=== PATIENT | male | born 1965 | race Hispanic/Latino ===

== ENCOUNTER 2019-12-14 12:28 | Inpatient (IN) | payer OTHER ==
[~2019-12-14] VITALS: Ht 167.6 cm; Wt 76.3 kg
[2019-12-14 13:40] LABS: BASOPHILS % 0.3 % (0.0-1.0); EOSINOPHILS % 0.1 % (0.0-6.0); HEMATOCRIT 47.9 % (38.2-49.6); HEMOGLOBIN 16.1 g/dL (14.0-18.0); LYMPHOCYTES # (AUTO) 1.7 (1.0-3.2); MEAN CORPUSCULAR HEMOGLOBIN 28.8 pg (28-32); MEAN CORPUSCULAR HGB CONC 33.6 g/dL (31-35); MEAN CORPUSCULAR VOLUME 85.5 fL (81-99); MONOCYTES # (AUTO) 0.6 (0.2-0.8); MONOCYTES % 6.1 % (4.4-11.3); NEUTROPHILS # (AUTO) 7.3 (2.1-6.9); NEUTROPHILS % 75.1 % (38.7-80.0); PLATELET COUNT 300 x10e3/uL (140-360); RED CELL DISTRIBUTION WIDTH 13.3 % (11.7-14.4)
[2019-12-14 13:50] LABS: INR 0.92; PROTHROMBIN TIME 12.8 seconds (11.9-14.5)
[2019-12-14 13:51] LABS: PARTIAL THROMBOPLASTIN TIME 36.9 seconds (23.8-35.5)
[2019-12-14 14:00] LABS: ALANINE AMINOTRANSFERASE 45 IU/L (0-55); ALBUMIN 4.5 g/dL (3.5-5.0); ALBUMIN/GLOBULIN RATIO 1.1 (0.8-2.0); ALKALINE PHOSPHATASE 50 IU/L (40-150); ANION GAP 14.9 mmol/L (8-16); BLOOD UREA NITROGEN 22 mg/dL (7-26); BUN/CREATININE RATIO 22 (6-25); CALCIUM 9.6 mg/dL (8.4-10.2); CARBON DIOXIDE 25 mmol/L (22-29); CHLORIDE 100 mmol/L (98-107); CREATININE, SERUM 1.01 mg/dL (0.72-1.25); EST GLOMERULAR FILTRATION RATE > 60 ML/MIN (60-); GLUCOSE 104 mg/dL (74-118); POTASSIUM 3.9 mmol/L (3.5-5.1); SODIUM 136 mmol/L (136-145)
[2019-12-14] MEDS ORDERED: KETOROLAC TROMETHAMINE 30 MG/ML VIAL IV STA (14:21)
[2019-12-14] MEDS ORDERED: ONDANSETRON HCL INJ 2MG/ML 2ML 2 MG/ML VIAL IV STA (14:21)
[2019-12-14] MEDS ORDERED: MORPHINE SULFATE 2 MG/ML SYR 1ML IV STA (14:21)
[2019-12-14] MEDS ORDERED: DIAZEPAM 5 MG TAB PO STA (14:21)
--- NOTE | 2019-12-14 16:59 | Diagnostic Imaging Report ---
History: Bilateral leg pain Comparison studies: None Technique: Sagittal, coronal and axial T2 , sagittal T1 and IR, axial spin density oblique. Intravenous contrast: None Findings: Number of lumbar vertebral bodies:5 Alignment: Normal lordosis.No scoliosis. Soft tissues: No T2 hyperintense inflammatory changes. Paraspinal muscles: No signal abnormalities. No atrophy. Lower thoracic cord:Normal in signal and morphology. The tip of the conus is at T12-L1. Cauda equina: No masses. No arachnoiditis. Vertebrae: Normal in height and signal intensity. No compression fractures, infection or neoplasm. Degenerative changes: L1-L2: No abnormalities. L2-L3: No abnormalities. L3-L4: The disc normal in height but decreased in T2 signal and associated with a posterior central annular fissure. Patent spinal canal and foramina. No disc herniations. L4-L5: Mildly degenerated disc. 1 cm central, right central and subarticular disc extrusion, which compresses the right L5 nerve root at the level of the disc and at the right lateral recess of L5, also results in severe spinal canal stenosis. No significant foraminal stenosis. L5-S1: Moderate degenerative disc. Moderate bilateral foraminal stenosis, right greater than left due to asymmetric disc bulge and right facet arthrosis. Patent spinal canal Partially visualized sacrum: No signal abnormalities. IMPRESSION: 1. Mildly degenerated disc at L4-5, moderate at L5-S1. 2. A 1 cm central, right central and subarticular disc extrusion at L4-5 compresses the right L5 nerve root and results in severe spinal canal stenosis. 3. Superimposed moderate foraminal stenosis L5-S1 (right greater than left). 4. Otherwise, no significant abnormalities. Signed by: Dr. Bruce Joseph M.D. on 12/14/2019 4:56 PM
[2019-12-14] MEDS ORDERED: DEXAMETHASONE SOD PHOS INJ 4 MG/ML VIAL IV ONE (17:30)
--- NOTE | 2019-12-14 18:17 | Emergency Department Note ---
History of Present Illnes History of Present Illness Chief Complaint: Back Pain History of Present Illness This is a 54 year old male sent here by pcp for mri of back r/o sciatica seen this morning c/o left lower back pain radiating down left leg to foot/toes states he's had pain for a week and c/o increasing weakness in legs and tingling Historian: Patient Arrival Mode: Car Returns Processor Required: No Onset (how long ago): week(s) (1) Location: lower back Quality: pain Radiation: Reports extremity (LLE) Severity: severe Onset quality: gradual Timing of current episode: constant Progression: worsening Chronicity: new Context: Denies recent illness Relieving factors: none Exacerbating factors: none Associated symptoms: Reports denies other symptoms Past Medical/Family History Physician Review I have reviewed the patient's past medical and family history. Any updates have been documented here. Past Medical History Recent Fever: No Clinical Suspicion of Infectio: No New/Unexplained Change in Ment: No Past Medical History: None Past Surgical History: None Social History Smoking Cessation: Never Smoker Counseling Performed: No Alcohol Use: Occasional Any Illegal Drug Use: No Physically hurt or threatened: No Other Any Pre-Existing Lines (PICC,: No Review of Systems Review of Systems Constitutional: Reports no symptoms EENTM: Reports no symptoms Cardiovascular: Reports no symptoms Respiratory: Reports no symptoms Gastrointestinal: Reports no symptoms Genitourinary: Reports no symptoms Musculoskeletal: Reports as per HPI Integumentary: Reports no symptoms Neurological: Reports no symptoms Psychological: Reports no symptoms Endocrine: Reports no symptoms Hematological/Lymphatic: Reports no symptoms Physical Exam Related Data Allergies: Coded Allergies: No Known Allergies (Unverified , 12/14/19) Triage Vital Signs Vital Signs Date Time Temp Pulse Resp B/P (MAP) Pulse Ox O2 Delivery O2 Flow Rate FiO2 12/14/19 12:53 98.9 77 16 134/90 99 Room Air Vital signs reviewed: Yes Physical Exam CONSTITUTIONAL Constitutional: Present well-developed, Present well-nourished HENT HENT: Present normocephalic, Present atraumatic, Present oropharynx clear/moist, Present nose normal HENT L/R: Present left ext ear normal, Present right ext ear normal EYES Eyes: Reports PERRL, Reports conjunctivae normal NECK Neck: Present ROM normal PULMONARY Pulmonary: Present effort normal, Present breath sounds normal CARDIOVASCULAR Cardiovascular: Present regular rhythm, Present heart sounds normal, Present capillary refill normal, Present normal rate GASTROINTESTINAL Abdominal: Present soft, Present nontender, Present bowel sounds normal GENITOURINARY Genitourinary: Present exam deferred SKIN Skin: Present warm, Present dry MUSCULOSKELETAL Musculoskeletal: Present ROM normal, Present other (POSITIVE SLR BILAT, NL DTR'S) NEUROLOGICAL Neurological: Present alert, Present oriented x 3, Present sensory deficit (SLIGHT DECR LIGHT TOUCH TO LEFT FOOT), Present weakness (MILD DECREASED STR 4+/5 IN BILAT LE'S) PSYCHOLOGICAL Psychological: Present mood/affect normal, Present judgement normal Results Laboratory Result Diagram: 12/14/19 1309 12/14/19 1309 Laboratory Laboratory Tests Test 12/14/19 15:55 12/14/19 13:09 White Blood Count 9.68 x10e3/uL (4.8-10.8) Red Blood Count 5.60 x10e6/uL (4.3-5.7) Hemoglobin 16.1 g/dL (14.0-18.0) Hematocrit 47.9 % (38.2-49.6) Mean Corpuscular Volume 85.5 fL (81-99) Mean Corpuscular Hemoglobin 28.8 pg (28-32) Mean Corpuscular Hemoglobin Concent 33.6 g/dL (31-35) Red Cell Distribution Width 13.3 % (11.7-14.4) Platelet Count 300 x10e3/uL (140-360) Neutrophils (%) (Auto) 75.1 % (38.7-80.0) Lymphocytes (%) (Auto) 18.0 % (18.0-39.1) Monocytes (%) (Auto) 6.1 % (4.4-11.3) Eosinophils (%) (Auto) 0.1 % (0.0-6.0) Basophils (%) (Auto) 0.3 % (0.0-1.0) Neutrophils # (Auto) 7.3 (2.1-6.9) Lymphocytes # (Auto) 1.7 (1.0-3.2) Monocytes # (Auto) 0.6 (0.2-0.8) Eosinophils # (Auto) 0.0 (0.0-0.4) Basophils # (Auto) 0.0 (0.0-0.1) Absolute Immature Granulocyte (auto 0.04 x10e3/uL (0-0.1) Prothrombin Time 12.8 seconds (11.9-14.5) Prothromb Time International Ratio 0.92 Activated Partial Thromboplast Time 36.9 seconds (23.8-35.5) Sodium Level 136 mmol/L (136-145) Potassium Level 3.9 mmol/L (3.5-5.1) Chloride Level 100 mmol/L (98-107) Carbon Dioxide Level 25 mmol/L (22-29) Anion Gap 14.9 mmol/L (8-16) Blood Urea Nitrogen 22 mg/dL (7-26) Creatinine 1.01 mg/dL (0.72-1.25) Estimat Glomerular Filtration Rate > 60 ML/MIN (60-) BUN/Creatinine Ratio 22 (6-25) Glucose Level 104 mg/dL (74-118) Calcium Level 9.6 mg/dL (8.4-10.2) Total Bilirubin 0.8 mg/dL (0.2-1.2) Aspartate Amino Transf (AST/SGOT) 74 IU/L (5-34) Alanine Aminotransferase (ALT/SGPT) 45 IU/L (0-55) Alkaline Phosphatase 50 IU/L (40-150) Total Protein 8.6 g/dL (6.5-8.1) Albumin 4.5 g/dL (3.5-5.0) Globulin 4.1 g/dL (2.3-3.5) Albumin/Globulin Ratio 1.1 (0.8-2.0) Lab results reviewed: Yes Imaging Imaging results reviewed: Yes Assessment & Plan Medical Decision Making MDM CHECK CBC, CHEM, MRI L-SPINE - R/O HERNIATED DISC, CORD COMPRESSION, SCIATICA Assessment & Plan Final Impression: (1) Spinal stenosis at L4-L5 level (2) Herniated intervertebral disc of lumbar spine Last Vital Signs Date Time Temp Pulse Resp B/P (MAP) Pulse Ox O2 Delivery O2 Flow Rate FiO2 12/14/19 16:31 57 17 113/77 100 12/14/19 12:53 98.9 Room Air Medications in the ED Morphine Sulfate 2 mg ONCE STAT IV Last administered on 12/14/19at 14:39; Admin Dose 2 MG; Start 12/14/19 at 14:21; Stop 12/14/19 at 14:31; Status DC Ondansetron HCl 4 mg ONCE STAT IV Last administered on 12/14/19at 14:39; Admin Dose 4 MG; Start 12/14/19 at 14:21; Stop 12/14/19 at 14:31; Status DC Ketorolac Tromethamine 30 mg ONCE STAT IV Last administered on 12/14/19at 14:39; Admin Dose 30 MG; Start 12/14/19 at 14:21; Stop 12/14/19 at 14:31; Status DC Diazepam 5 mg NOW STAT PO Last administered on 12/14/19at 14:39; Admin Dose 5 MG; Start 12/14/19 at 14:21; Stop 12/14/19 at 14:31; Status DC Dexamethasone Sodium Phosphate 10 mg ONCE ONCE IV ; Start 12/14/19 at 17:30; Stop 12/14/19 at 17:31; Status DC SHERIE HARTLEY MD Dec 14, 2019 18:17
[2019-12-14] MEDS ORDERED: SODIUM CHLORIDE 0.9% 1000ML 1,000 ML IV SCH (18:30)
[2019-12-14] MEDS ORDERED: ONDANSETRON HCL INJ 2MG/ML 2ML 2 MG/ML VIAL IV PRN (18:30)
--- OUTSIDE RECORDS SUMMARY | 2019-12-14 18:49 | XMS REPORT | Continuity of Care Document ---
Author Author [facility] t Organization [facility] Address [address] [place] [address] Dr. Gee [address] [place] [id number] Phone Unavailable Care Team Providers Care It Systems Administrator Name Role Phone Cyn HARTLEY Attphys Unavailable Problems This patient has no known problems. Allergies, Adverse Reactions, Alerts This patient has no known allergies or adverse reactions. Medications This patient has no known medications. Procedures This patient has no known procedures. Results Test Description Test Time Test Comments Results Result Comments Source MRI SPINE LUMBAR WO 2019-12-14 16:50:00 [place] [address] Patient Name: JANA MANRIQUE MR #: [id number] : 1965 Age/Sex: 54/M Req #: [id number] Adm Physician: Ordered by: SHERIE HARTLEY MD Report #: [id number] Location: ER Room/Bed: Procedure: [id number] MRI/MRI SPINE LUMBAR WO Exam Date: Exam Time: REPORT STATUS: Signed History: Bilateral leg pain Comparison studies: None Technique: Sagittal, coronal and axial T2 , sagittal T1 and IR, axial spin density oblique. Intravenous contrast: None Findings: Number of lumbar vertebral bodies:5 Alignment: Normal lordosis.No scoliosis. Soft tissues: No T2 hyperintense inflammatory changes. Paraspinal muscles: No signal abnormalities. No atrophy. Lower thoracic cord:Normal in signal and morphology. The tip of the conus is at T12-L1. Cauda equina: No masses. No arachnoiditis. Vertebrae: Normal in height and signal intensity. No compression fractures, infection or neoplasm. Degenerative changes: L1-L2: No abnormalities. L2-L3: No abnormalities. L3-L4: The disc normal in height but decreased in T2 signal and associated with a posterior central annular fissure. Patent spinal canal and foramina. No disc herniations. L4-L5: Mildly degenerated disc. 1 cm central, right central and subarticular disc extrusion, which compresses the right L5 nerve root at the level of the disc and at the right lateral recess of L5, also results in severe spinal canal stenosis. No significant foraminal stenosis. L5-S1: Moderate degenerative disc. Moderate bilateral foraminal stenosis, right greater than left due to asymmetric disc bulge and right facet arthrosis. Patent spinal canal Partially visualized sacrum: No signal abnormalities. IMPRESSION: 1. Mildly degenerated disc at L4-5, moderate at L5-S1. 2. A 1 cm central, right central and subarticular disc extrusion at L4-5 compresses the right L5 nerve root and results in severe spinal canal stenosis. 3. Superimposed moderate foraminal stenosis L5-S1 (right greater than left). 4. Otherwise, no significant abnormalities. Signed by: Dr. Bruce Joseph M.D. on 12/14/2019 4:56 PM Dictated By: BRUCE JOSEPH MD, MD 56 Transcribed By: AMBERLY on 12/14/191655 COPY TO: SHERIE HARTLEY MD
[2019-12-14 19:39] VITALS: BP 134/86
[2019-12-14 20:00] VITALS: BP 134/86
[2019-12-14 20:02] VITALS: BP 134/65
[2019-12-15] VITALS (8 sets, daily range): BP systolic 121–133; BP diastolic 77–91
[2019-12-15 05:00] LABS: BASOPHILS % 0.1 % (0.0-1.0); HEMATOCRIT 44.4 % (38.2-49.6); HEMOGLOBIN 14.8 g/dL (14.0-18.0); LYMPHOCYTES # (AUTO) 1.4 (1.0-3.2); LYMPHOCYTES % 15.2 % (18.0-39.1); MEAN CORPUSCULAR HEMOGLOBIN 28.6 pg (28-32); MEAN CORPUSCULAR HGB CONC 33.3 g/dL (31-35); MEAN CORPUSCULAR VOLUME 85.9 fL (81-99); MONOCYTES # (AUTO) 0.3 (0.2-0.8); MONOCYTES % 2.9 % (4.4-11.3); NEUTROPHILS # (AUTO) 7.3 (2.1-6.9); NEUTROPHILS % 81.2 % (38.7-80.0); PLATELET COUNT 277 x10e3/uL (140-360); RED BLOOD COUNT 5.17 x10e6/uL (4.3-5.7); RED CELL DISTRIBUTION WIDTH 13.1 % (11.7-14.4)
[2019-12-15 05:25] LABS: ALANINE AMINOTRANSFERASE 34 IU/L (0-55); ALBUMIN 3.8 g/dL (3.5-5.0); ALBUMIN/GLOBULIN RATIO 1.1 (0.8-2.0); ALKALINE PHOSPHATASE 43 IU/L (40-150); ANION GAP 14.5 mmol/L (8-16); BLOOD UREA NITROGEN 29 mg/dL (7-26); BUN/CREATININE RATIO 29 (6-25); CALCIUM 8.8 mg/dL (8.4-10.2); CARBON DIOXIDE 25 mmol/L (22-29); CHLORIDE 102 mmol/L (98-107); EST GLOMERULAR FILTRATION RATE > 60 ML/MIN (60-); GLUCOSE 123 mg/dL (74-118); POTASSIUM 4.5 mmol/L (3.5-5.1); SODIUM 137 mmol/L (136-145)
--- NOTE | 2019-12-15 12:39 | NUR ---
Dr Hernadez had rounds, per patient he has to discuss the surgery with his . Dr Hernadez said call him back to schedule the procedure on if the patient agrees
--- NOTE | 2019-12-15 12:53 | Consultation ---
DATE OF CONSULTATION: 12/15/2019 REASON FOR CONSULTATION: Bilateral leg pain and numbness. HISTORY OF PRESENT ILLNESS: The patient is a 54-year-old man, who presents with a 1-week history of acute onset of low back pain and bilateral leg pain and numbness. The numbness is worse in the right leg and foot, were as the pain is worse in the left leg. He can stand with great difficulty and develops increasing low back pain and feels weak in both legs. He has had to resort to a walker to walk for the past week. He denies any numbness on his genitals or urinary incontinence at this time. He was admitted through the emergency room yesterday. An urgent MRI of the lumbar spine was performed and I was consulted this morning. PHYSICAL EXAMINATION: On examination, the patient is alert and awake. He is comfortable when lying in bed, but has extreme pain with attempting to stand up. Straight leg raising is positive bilaterally at 20 degrees. Sensation to light touch and pinprick is diminished over the dorsum of both feet. Deep tendon reflexes are 2+ in both patellar tendons and absent in both Achilles tendons. Plantar responses are flexor. There is 4/5 weakness of anterior tibialis bilaterally. IMAGING: MRI of the Lumbar spine was reviewed. There is a massive central and right paracentral disk herniation, which produces radiographic compression of the cauda equina and severe spinal stenosis. IMPRESSION: Massive central and right paracentral L4-L5 disk herniation with radiographic cauda equina compression, symptomatic with bilateral L5 radiculopathy without urinary incontinence at this time. I recommend right L4-L5 laminotomy and microsurgical diskectomy in order to treat his bilateral symptoms and to prevent progression to full-blown cauda equina syndrome with incontinence. I have described the operation and its risks and benefits to the patient in great detail including risks of infection, bleeding, CSF leakage, recurrent disk herniation, and the possibility of persistent pain, numbness, and weakness. He understands all these issues. He is going to talk to his and his work, and make a decision about the surgery. The surgery will tentatively be scheduled for . Dallas Hernadez MD PP/MODL /[id number]
[2019-12-15] MEDS ORDERED: PREDNISONE10 MG PO (14:56)
[2019-12-15] MEDS ORDERED: METOPROLOL TARTRATE INJ 1 MG/ML VIAL IV PRN (18:00)
[2019-12-15] MEDS ORDERED: HYDRALAZINE HCL 20 MG/ML VIAL IV PRN (18:00)
[2019-12-15] MEDS ORDERED: POLYETHYLENE GLYCOL 3350 17 GM PACK PO PRN (18:00)
[2019-12-15] MEDS ORDERED: TEMAZEPAM 7.5 MG CAP PO PRN (18:00)
[2019-12-15] MEDS ORDERED: ACETAMINOPHEN 325 MG TAB PO PRN (18:00)
[2019-12-15] MEDS: HYDROMORPHONE 1MG/1ML INJ IV PRN (18:19)
--- NOTE | 2019-12-15 19:35 | History and Physical ---
CONSULTING PHYSICIAN: Dr. Hernadez with Neurosurgery. CHIEF COMPLAINT: Low back pain. HISTORY OF PRESENT ILLNESS: The patient is a 54-year-old male with one week acute onset of low back pain and bilateral leg pain as well as weakness that was sent here by his PCP Dr. Jarrod Reyes. The patient is unable to walk by himself. He has severe back pain on admission, currently receiving Dilaudid p.r.n. for pain. PAST MEDICAL HISTORY: Hyperlipidemia. PAST SURGICAL HISTORY: None. FAMILY HISTORY: Mother had hypertension. Father had a tumor in his stomach. Sister had a stroke. SOCIAL HISTORY: The patient denies previous history of tobacco or illicit drugs. He says he drinks about 3 drinks per week at times, but not every week. He works as a steel welder. He lives with family. ALLERGIES: NO KNOWN ALLERGIES. REVIEW OF SYSTEMS: A 14-point review of systems was completed. The patient only complains of aforementioned back pain as per history of present illness. Currently at 4/10 on a 0-10 pain scale. He says all his toes are numb and he has pain in both legs and he is unable ambulate effectively. PHYSICAL EXAMINATION: VITAL SIGNS: Temperature 98.2, he has been afebrile, heart rate 56, blood pressure 133/88, respirations 16, oxygen saturation 98%, height 5 feet 6 inches, weight 168 pounds. BMI 27.11. GENERAL: No acute distress, supine in bed. LUNGS: Clear to auscultation. RESPIRATORY: Pattern even and unlabored. HEENT: EOMI, neck is supple. CARDIOVASCULAR: Regular rate and rhythm. No murmur. ABDOMEN: Bowel sounds positive. Soft, nontender. EXTREMITIES: Without pitting edema. No clubbing, cyanosis, or marked swelling. NEUROLOGICAL: GCS 15, nonfocal. LABORATORY DATA: Today, WBCs 8.97, hemoglobin 14.8, hematocrit 44.4, platelets 277. INR 0.92. Sodium 137, potassium 4.5, chloride 102, CO2 of 25, anion gap 14.5, BUN 29, creatinine 1.0, estimated GFR greater than 60. Glucose 123, calcium 8.8, total bilirubin 0.9, AST 47, ALT 34, alkaline phosphatase 43, total protein 7.4, albumin 3.8. Coronavirus PCR was negative. MRI of the lumbar spine showed mildly degenerated disk at L4-5, moderate L5-S1. A 1 cm right central and subarticular disk extrusion at L4-5, compresses the right L5 nerve root and results in severe spinal canal stenosis, superimposed moderate foraminal stenosis L5-S1 with right being greater than the left. Otherwise, no significant abnormalities as per Radiology results. ASSESSMENT/PLAN: 1. Massive right central disk herniation at L4-L5. Neurosurgery has been consulted and surgery is planned for . The patient to be n.p.o. after midnight tomorrow. We will order incentive spirometry. 2. Spinal stenosis at L4-L5 level as above. 3. Low back pain, pain control, currently on IV Dilaudid p.r.n. 4. Ambulatory dysfunction, Physical Therapy to eval and treat. 5. Transaminitis, AST 47 (74) monitor. 6. Asymptomatic bradycardia, heart rate 56, monitor. 7. Prophylaxis, IV Pepcid. TIME SPENT: 60 minutes. BILLING CODE: [id number]. Dictated by Ramiro Mederos NP MD HEATH LoveP/MODL /[id number]
[2019-12-15] MEDS ORDERED: TEMAZEPAM 15 MG CAP PO PRN (21:00)
[2019-12-15 23:06] LABS: BILIRUBIN,URINE NEGATIVE (NEGATIVE); CLARITY,URINE CLEAR (CLEAR); COLOR,URINE YELLOW (YELLOW); KETONES,URINE NEGATIVE (NEGATIVE); LEUKOCYTE ESTERASE ,URINE NEGATIVE (NEGATIVE); NITRITE,URINE NEGATIVE (NEGATIVE); PROTEIN,URINE DIPSTICK NEGATIVE (NEGATIVE); URINE UROBILINOGEN 0.2 mg/dL (0.2 - 1)
[2019-12-15 23:16] LABS: BACTERIA,URINE FEW /HPF; EPITHELIAL CELLS,URINE FEW /LPF; RBC,URINE 0-5 /HPF (0-5); WBC,URINE (MAN) 0-5 /HPF (0-5)
[2019-12-16] VITALS (7 sets, daily range): BP systolic 111–147; BP diastolic 69–86
--- NOTE | 2019-12-16 02:32 | Progress Note ---
DATE: 12/15/2019 ADDENDUM: PCP: Jarrod Reyes MD [place] hospital code [id number]. Dictated by Ramiro Mederos, KEY OPERATOR Daniel Crowe MD HWP/MODL /[id number]
[2019-12-16 05:00] LABS: BASOPHILS % 0.2 % (0.0-1.0); EOSINOPHILS # (AUTO) 0.1 (0.0-0.4); EOSINOPHILS % 1.4 % (0.0-6.0); HEMATOCRIT 44.1 % (38.2-49.6); HEMOGLOBIN 14.9 g/dL (14.0-18.0); LYMPHOCYTES # (AUTO) 3.8 (1.0-3.2); LYMPHOCYTES % 36.6 % (18.0-39.1); MEAN CORPUSCULAR HEMOGLOBIN 29.2 pg (28-32); MEAN CORPUSCULAR HGB CONC 33.8 g/dL (31-35); MEAN CORPUSCULAR VOLUME 86.5 fL (81-99); MONOCYTES # (AUTO) 1.1 (0.2-0.8); MONOCYTES % 10.3 % (4.4-11.3); NEUTROPHILS # (AUTO) 5.2 (2.1-6.9); NEUTROPHILS % 51.1 % (38.7-80.0); PLATELET COUNT 258 x10e3/uL (140-360)
[2019-12-16 05:27] LABS: ALANINE AMINOTRANSFERASE 33 IU/L (0-55); ALBUMIN 3.6 g/dL (3.5-5.0); ALKALINE PHOSPHATASE 43 IU/L (40-150); ANION GAP 11.2 mmol/L (8-16); BLOOD UREA NITROGEN 27 mg/dL (7-26); BUN/CREATININE RATIO 24 (6-25); CALCIUM 8.8 mg/dL (8.4-10.2); CARBON DIOXIDE 28 mmol/L (22-29); CHLORIDE 102 mmol/L (98-107); CHOL/HDL RATIO 4.5 (3.9-4.7); CHOLESTEROL 183 MD/DL (0-199); CREATININE, SERUM 1.12 mg/dL (0.72-1.25); EST GLOMERULAR FILTRATION RATE > 60 ML/MIN (60-); GLUCOSE 99 mg/dL (74-118); HDL CHOLESTEROL 41 MG/DL (40-60); LDL CHOLESTEROL 113 MG/DL (60-130); MAGNESIUM 2.2 MG/DL (1.3-2.1); PHOSPHORUS 3.6 MG/DL (2.3-4.7); POTASSIUM 4.2 mmol/L (3.5-5.1); SODIUM 137 mmol/L (136-145); TRIGLYCERIDES 145 MG/DL (0-149)
[2019-12-16 05:49] LABS: THYROID STIMULATING HORMONE 4.065 uIU/mL (0.350-4.940)
--- NOTE | 2019-12-16 07:00 | NUR ---
bedside shift report received pt in stable condition, denies pain at this time, updated on poc voiced understanding, r ac 20g no ss of infiltration noted, no other co vocied call light in reach will continue to monitor
[2019-12-16] MEDS: DOCUSATE SODIUM 100 MG CAP PO SCH ×2 (08:52→16:45)
[2019-12-16] MEDS: FAMOTIDINE 20 MG/2 ML VIAL IV SCH ×2 (08:52→16:45)
[2019-12-16] MEDS: PREDNISONE 20 MG TAB PO SCH (08:53)
--- NOTE | 2019-12-16 23:45 | NUR ---
Date of Service: 12/16/2019 CONSULTING PHYSICIAN: Dr. Hernadez with Neurosurgery. CHIEF COMPLAINT: Low back pain. HISTORY OF PRESENT ILLNESS: The patient is a 54-year-old male with one week acute onset of low back pain and bilateral leg pain as well as weakness that was sent here by his PCP Dr. Jarrod Reyes. The patient is unable to walk by himself. He had severe back pain on admission, currently receiving Dilaudid p.r.n. for pain. REVIEW OF SYSTEMS: A 14-point review of systems was completed. Currently no c/o back pain, per RN not requiring pain medications. Denies incontinence. Proper use of I.S. explained by MARCO Clark, preoperatively. PHYSICAL EXAMINATION: VITAL SIGNS: Temperature 98.1, he has been afebrile, heart rate 68, blood pressure 147/86, respirations 20, oxygen saturation 99%. GENERAL: No acute distress, supine in bed. LUNGS: Clear to auscultation. RESPIRATORY: Pattern even and unlabored. HEENT: EOMI, neck is supple. CARDIOVASCULAR: Regular rate and rhythm. No murmur. ABDOMEN: Bowel sounds positive. Soft, nontender. EXTREMITIES: Without pitting edema. No clubbing, cyanosis, or marked swelling. No S/S DVT. NEUROLOGICAL: GCS 15, nonfocal. LABORATORY DATA: Today, WBCs 10.2 (8.97), hemoglobin 14.9, hematocrit 44.1, platelets 258. BUN 27 (29), creatinine 1.12 (1.0), estimated GFR greater than 60. MaK7B=2.6%, TSH 4.065, Lipids WNL. Coronavirus PCR was negative. IMAGING: MRI of the lumbar spine showed mildly degenerated disk at L4-5, moderate L5-S1. A 1 cm right central and subarticular disk extrusion at L4-5, compresses the right L5 nerve root and results in severe spinal canal stenosis, superimposed moderate foraminal stenosis L5-S1 with right being greater than the left. Otherwise, no significant abnormalities as per Radiologist results. ASSESSMENT/PLAN: 1. Massive right central disk herniation at L4-L5. Neurosurgery has been consulted and surgery is planned for . NPO after midnight. Incentive spirometry hourly while awake. 2. Spinal stenosis at L4-L5 level as above. 3. Low back pain, pain control, currently on IV Dilaudid p.r.n. 4. Ambulatory dysfunction, Physical Therapy to eval and treat. 5. Transaminitis: Improving; AST 36 (47, 74), monitor. 6. Asymptomatic bradycardia, heart rate 56 on 12/14, monitor. HR 68 this AM. Prophylaxis: IV Pepcid. TIME SPENT: 35 minutes. BILLING CODE: [id number].
[2019-12-17] VITALS (9 sets, daily range): BP systolic 105–135; BP diastolic 73–87
[2019-12-17 04:55] LABS: BASOPHILS % 0.3 % (0.0-1.0); EOSINOPHILS # (AUTO) 0.1 (0.0-0.4); EOSINOPHILS % 0.4 % (0.0-6.0); HEMATOCRIT 44.7 % (38.2-49.6); HEMOGLOBIN 14.9 g/dL (14.0-18.0); LYMPHOCYTES # (AUTO) 3.4 (1.0-3.2); LYMPHOCYTES % 30.1 % (18.0-39.1); MEAN CORPUSCULAR HEMOGLOBIN 28.5 pg (28-32); MEAN CORPUSCULAR HGB CONC 33.3 g/dL (31-35); MEAN CORPUSCULAR VOLUME 85.5 fL (81-99); MONOCYTES % 9.1 % (4.4-11.3); NEUTROPHILS # (AUTO) 6.7 (2.1-6.9); NEUTROPHILS % 59.6 % (38.7-80.0); PLATELET COUNT 289 x10e3/uL (140-360); RED BLOOD COUNT 5.23 x10e6/uL (4.3-5.7); RED CELL DISTRIBUTION WIDTH 13.2 % (11.7-14.4)
[2019-12-17 05:13] LABS: ANION GAP 12.8 mmol/L (8-16); BLOOD UREA NITROGEN 21 mg/dL (7-26); BUN/CREATININE RATIO 22 (6-25); CALCIUM 8.8 mg/dL (8.4-10.2); CARBON DIOXIDE 26 mmol/L (22-29); CHLORIDE 102 mmol/L (98-107); CREATININE, SERUM 0.94 mg/dL (0.72-1.25); EST GLOMERULAR FILTRATION RATE > 60 ML/MIN (60-); GLUCOSE 100 mg/dL (74-118); POTASSIUM 3.8 mmol/L (3.5-5.1); SODIUM 137 mmol/L (136-145)
--- NOTE | 2019-12-17 06:57 | NUR ---
report given to day nurse.
[2019-12-17] MEDS ORDERED: IBUPROFEN 800MG/ 200ML 200 ML IV ONE (07:16)
[2019-12-17] MEDS ORDERED: LIDOCAINE HCL (LTA) 4 ML SOLN ONE (07:16)
[2019-12-17] MEDS: HYDROMORPHONE 1MG/1ML INJ IV PRN (07:26)
--- NOTE | 2019-12-17 08:47 | NUR ---
ST NOTE: PT is NPO for back surgery, will complete BSE on 12/18/19
[2019-12-17] MEDS: DOCUSATE SODIUM 100 MG CAP PO SCH ×2 (09:00→16:15)
[2019-12-17] MEDS: PREDNISONE 20 MG TAB PO SCH (09:00)
[2019-12-17] MEDS: FAMOTIDINE 20 MG/2 ML VIAL IV SCH ×2 (09:35→16:22)
[2019-12-17] MEDS ORDERED: THROMBIN FOR SOLN 5,000 UNIT VIAL ONE (09:43)
[2019-12-17] MEDS ORDERED: VANCOMYCIN HCL 1 GM VIAL ONE (09:43)
[2019-12-17] MEDS ORDERED: BUPIVACAINE 0.25%/EPI 30ML SDV INJ ONE (09:43)
--- NOTE | 2019-12-17 10:22 | NUR ---
Date of Service: 12/17/2019 PCP: Dr. Jarrod Reyes ATTENDING PHYSICIAN: Dr. Daniel Crowe CONSULTING PHYSICIAN: Dr. Hernadez with Neurosurgery CHIEF COMPLAINT: Low back pain. HISTORY OF PRESENT ILLNESS: The patient is a 54-year-old male with one week acute onset of low back pain and bilateral leg pain as well as weakness that was sent here by his PCP Dr. Jarrod Reyes. The patient is unable to walk by himself. He had severe back pain on admission, currently receiving Dilaudid p.r.n. for pain. REVIEW OF SYSTEMS: A 14-point review of systems was completed. Currently c/o back pain 3-08/06, also c/o numbness/tingling in the toes. Denies incontinence. Proper use of I.S. explained by MARCO Clark, preoperatively. PHYSICAL EXAMINATION: VITAL SIGNS: Temperature 97.8, he has been afebrile, heart rate 57, 105/73, respirations 18, oxygen saturation 100%. GENERAL: No acute distress, supine in bed. LUNGS: Clear to auscultation. Respiratory pattern even and unlabored. HEENT: EOMI, neck is supple. CARDIOVASCULAR: Regular rate and rhythm. No murmur. ABDOMEN: Bowel sounds positive. Soft, nontender. EXTREMITIES: Without pitting edema. No clubbing, cyanosis, or marked swelling. No S/S DVT. NEUROLOGICAL: GCS 15, nonfocal. LABORATORY DATA: Today, WBCs 11.1 (10.2, 8.97), hemoglobin 14.9, hematocrit 44.7, platelets 289. BUN 21 (27, 29), creatinine 0.94 (1.12, 1.0), estimated GFR > 60. LxC8N=0.6%, TSH 4.065, Lipids WNL. Final Urine C/S: No growth. Coronavirus PCR was negative. IMAGING/OTHER: MRI of the lumbar spine showed mildly degenerated disk at L4-5, moderate L5-S1. A 1 cm right central and subarticular disk extrusion at L4-5, compresses the right L5 nerve root and results in severe spinal canal stenosis, superimposed moderate foraminal stenosis L5-S1 with right being greater than the left. Otherwise, no significant abnormalities as per Radiologist results. Bedside Swallow Eval by ST planned. ASSESSMENT/PLAN: 1. Massive right central disk herniation at L4-L5. Neurosurgery has been consulted and surgery is planned for today. Remains NPO. Incentive spirometry hourly while awake, using consistently. 2. Spinal stenosis at L4-L5 level as above. 3. Low back pain, pain control, currently on IV Dilaudid p.r.n. 4. Ambulatory dysfunction, Physical Therapy to eval and treat. 5. Transaminitis: Improving; 12/15 AST 36 (47, 74), monitor. 6. Asymptomatic bradycardia, heart rate 57, monitor. Prophylaxis: IV Pepcid. TIME SPENT: 35 minutes. BILLING CODE: [id number].
--- NOTE | 2019-12-17 10:37 | NUR ---
LEFT FOR SURGERY
[2019-12-17] MEDS ORDERED: DEXAMETHASONE SOD PHOS INJ 4 MG/ML VIAL ONE ×2 (12:26→19:30)
[2019-12-17] MEDS ORDERED: HYDROMORPHONE 2MG/ML 2 MG/ML ML IV PRN (13:00)
[2019-12-17] MEDS ORDERED: MORPHINE SULFATE 5 MG/ML VIAL IM PRN (13:00)
[2019-12-17] MEDS ORDERED: ACETAMINOPHEN 325 MG TAB PO PRN (13:00)
[2019-12-17] MEDS: LACTATED RINGER'S 1,000 ML IV SCH ×2 (13:00→21:20)
[2019-12-17] MEDS ORDERED: CEPACOL SORE THROAT LOZENGES PO PRN (13:00)
[2019-12-17] MEDS ORDERED: OXYCODONE/ACETAMINOPHEN 5-325 1 EACH TABLET PO PRN (13:00)
[2019-12-17] MEDS ORDERED: CARISOPRODOL 350 MG TAB PO PRN (13:00)
[2019-12-17] MEDS ORDERED: MAGNESIUM/ALUMINUM/SIMETHICONE 30 ML UDC PO PRN (13:00)
[2019-12-17] MEDS ORDERED: ONDANSETRON HCL INJ 2MG/ML 2ML 2 MG/ML VIAL IV PRN (13:00)
[2019-12-17] MEDS ORDERED: PROMETHAZINE HCL (IM) 25 MG/ML VIAL IM PRN (13:00)
[2019-12-17] MEDS ORDERED: HYDROMORPHONE 1MG/1ML INJ IV PRN (13:30)
--- NOTE | 2019-12-17 13:32 | Diagnostic Imaging Report ---
EXAMINATION: Intraoperative lumbar spine radiograph-one view CLINICAL HISTORY: X-ray for surgical level, back pain COMPARISON: Lumbar spine MRI 12/14/2019 DISCUSSION: Limited intraoperative cross table radiograph of the lumbar spine. Linear metallic markers overlie the lumbar spine at the level of L4-L5. No acute osseous abnormalities given exam limitations. Degenerative disc changes and facet arthropathy at L5-S1. IMPRESSION: Limited intraoperative lumbar spine radiograph with linear metallic markers overlying the lumbar spine at the level of L4-L5. Signed by: Tyler García MD on 12/17/2019 1:28 PM
--- NOTE | 2019-12-17 13:33 | Diagnostic Imaging Report ---
EXAMINATION: Intraoperative lumbar spine radiograph-one view CLINICAL HISTORY: X-ray for surgical level, back pain COMPARISON: Lumbar spine MRI 12/14/2019, intraoperative lumbar spine radiograph performed earlier on the same day (12/17/2019) DISCUSSION: Limited intraoperative cross table radiograph of the lumbar spine. Surgical metallic hardware overlies the posterior soft tissues at the level of L4-L5. No acute osseous abnormalities given exam limitations. Degenerative disc changes and facet arthropathy at L5-S1. IMPRESSION: Limited intraoperative lumbar spine radiograph with metallic surgical hardware overlying the posterior soft tissues at the level of L4-L5. Signed by: Tyler García MD on 12/17/2019 1:30 PM
[2019-12-17] MEDS: CEFAZOLIN SOD 1 GM/NS 50ML 100 ML IV ONE ×2 (14:59→17:24)
[2019-12-17] MEDS: GLYCOPYRROLATE 0.2 MG/ML VIAL ONE ×2 (14:59→17:24)
[2019-12-17] MEDS ORDERED: ONDANSETRON HCL INJ 2MG/ML 2ML 2 MG/ML VIAL ONE (19:30)
[2019-12-17] MEDS ORDERED: MIDAZOLAM HCL 2 MG/2 ML VIAL ONE (19:30)
[2019-12-17] MEDS ORDERED: LIDOCAINE HCL 2% LOCAL INJ 5 ML SDV VIAL INJ ONE (19:30)
[2019-12-17] MEDS ORDERED: NEOSTIGMINE 1 MG/ML 10ML VIAL ONE (19:30)
[2019-12-17] MEDS ORDERED: FENTANYL CITRATE/PF 100MCG/2 ML INJ ONE (19:30)
[2019-12-17] MEDS ORDERED: GLYCOPYRROLATE INJ 0.2 MG/ML VIAL ONE (19:30)
[2019-12-17] MEDS ORDERED: ROCURONIUM BROMIDE 10 MG/ML 5ML VIAL IV ONE (19:30)
[2019-12-17] MEDS ORDERED: PROPOFOL IV EMULSION 10 MG/ML 20 ML VIAL ONE (19:30)
[2019-12-17] MEDS ORDERED: SEVOFLURANE INHAL SOLN 250 ML PEN BTL ONE (19:30)
--- NOTE | 2019-12-17 20:05 | Operative Report ---
DATE OF PROCEDURE: 12/17/2019 SURGEON: Dallas Hernadez MD PREOPERATIVE DIAGNOSIS: Massive central and right paracentral L4-5 disk herniation with bilateral L5 radiculopathy, M51.16. POSTOPERATIVE DIAGNOSIS: Massive central and right paracentral L4-5 disk herniation with bilateral L5 radiculopathy, M51.16. PROCEDURE: Right L4-L5 laminotomy, medial facetectomy, and microsurgical diskectomy, [id number]. ANESTHESIA: General. INDICATIONS: The patient is a 54-year-old man, who presents with a massive central and right paracentral L4-5 disk herniation symptomatic with bilateral L4-5 radiculopathy and radiographic cauda equina compression. He was taken to surgery for diskectomy through a right-sided approach. PROCEDURE IN DETAIL: After induction of general anesthesia, the patient was placed on the operating table in prone position over Murray frame. Lumbar region was prepped and draped in sterile fashion. A preoperative x-ray was obtained. A small midline incision was created. Lumbar fascia was opened to the right of midline and subperiosteal dissection was carried out to expose the right-sided L4 and L5 lamina and medial aspect of the facet joint. A second x-ray confirmed correct localization. The operating microscope was brought in. A high-speed drill equipped with coco bur was used to drill the inferior aspect of lamina of L4 and the medial rim of the inferior articular process of L4 and superior rim of the lamina of L5. The ligamentum flavum was resected. The dural sac and L5 nerve root were exposed. The herniated disk material immediately came into view markedly elevating and compressing the L5 nerve root and the right-sided dural sac. The epidural vein lateral to the dura were bipolar coagulated and divided with micro scissors. The membrane overlying the extruded disk was incised with the tip of the #11 blade and the extruded disk material was mobilized with a micro ball probe and grasped with a micropituitary rongeur and carefully delivered out as a very large fragment of disk. A ball probe was then passed into the ventral epidural space and a second very large fragment of disk was retrieved and removed. Excellent decompression of the dura and L5 nerve root was thus achieved. The opening into the annulus of the disk was enlarged with a #11 blade and loose contents of the L4-L5 disk were evacuated with curettes and pituitary instruments. Meticulous hemostasis was secured. Retractor was removed. The lumbar fascia was closed with 0 Vicryl suture. Subcutaneous layer was closed with 2-0 Vicryl sutures. The skin was closed with 3-0 Monocryl sutures in subcuticular fashion. Steri-Strips and dressing were applied. The patient was awakened and extubated in post anesthesia care unit in stable condition. No intraoperative complications were encountered. Estimated blood loss10 mL. Dallas Hernadez MD PP/DIPIKA /[id number]
[2019-12-17] MEDS ORDERED: ZOLPIDEM TARTRATE 5 MG TAB PO PRN (21:00)
[2019-12-17] MEDS: CEFAZOLIN SOD 1 GM/NS 50ML 50 ML IV SCH (21:11)
[2019-12-18] VITALS: BP 98/68
[2019-12-18 04:00] VITALS: BP 102/71
[2019-12-18 05:18] LABS: BASOPHILS % 0.1 % (0.0-1.0); EOSINOPHILS % 0.1 % (0.0-6.0); HEMOGLOBIN 14.5 g/dL (14.0-18.0); LYMPHOCYTES # (AUTO) 2.3 (1.0-3.2); LYMPHOCYTES % 17.1 % (18.0-39.1); MEAN CORPUSCULAR HEMOGLOBIN 31.5 pg (28-32); MEAN CORPUSCULAR HGB CONC 35.4 g/dL (31-35); MEAN CORPUSCULAR VOLUME 89.1 fL (81-99); MONOCYTES # (AUTO) 1.1 (0.2-0.8); MONOCYTES % 8.2 % (4.4-11.3); NEUTROPHILS # (AUTO) 9.9 (2.1-6.9); PLATELET COUNT 225 x10e3/uL (140-360); RED CELL DISTRIBUTION WIDTH 14.4 % (11.7-14.4)
[2019-12-18] MEDS: CEFAZOLIN SOD 1 GM/NS 50ML 50 ML IV SCH (05:18)
[2019-12-18] MEDS: LACTATED RINGER'S 1,000 ML IV SCH (05:40)
[2019-12-18 05:41] LABS: ANION GAP 11.9 mmol/L (8-16); BLOOD UREA NITROGEN 21 mg/dL (7-26); BUN/CREATININE RATIO 20 (6-25); CALCIUM 8.5 mg/dL (8.4-10.2); CARBON DIOXIDE 26 mmol/L (22-29); CHLORIDE 103 mmol/L (98-107); CREATININE, SERUM 1.07 mg/dL (0.72-1.25); EST GLOMERULAR FILTRATION RATE > 60 ML/MIN (60-); GLUCOSE 116 mg/dL (74-118); MAGNESIUM 2.2 MG/DL (1.3-2.1); PHOSPHORUS 3.6 MG/DL (2.3-4.7); POTASSIUM 3.9 mmol/L (3.5-5.1); SODIUM 137 mmol/L (136-145)
[2019-12-18 08:00] VITALS: BP 115/86
[2019-12-18 08:16] VITALS: BP 115/86
[2019-12-18] MEDS ORDERED: NORCO 7.5-3251 EACH PO (08:55)
[2019-12-18] MEDS: PREDNISONE 20 MG TAB PO SCH (09:00)
[2019-12-18] MEDS: DOCUSATE SODIUM 100 MG CAP PO SCH (09:00)
[2019-12-18] MEDS ORDERED: ONDANSETRON HCL 4 MG ORAL DISINTEGRATING TAB PO PRN (09:45)
[2019-12-18 09:52] VITALS: BP 115/86
--- NOTE | 2019-12-18 13:33 | NUR ---
Discharge Summary dictated, job #[id number].
[2019-12-18] MEDS ORDERED: FAMOTIDINE 20 MG TAB PO SCH (16:30)
--- NOTE | 2019-12-19 00:10 | Discharge Summary ---
CONSULTING PHYSICIAN: Dr. Hernadez with Neurosurgery. CHIEF COMPLAINT: Low back pain. HISTORY: The patient is a 54-year-old male with 1 week acute onset of low back pain and bilateral leg pain as well as weakness, who was sent to [facility] by his PCP, Dr. Jarrod Reyes. The patient was unable to walk by himself. Initially, he had severe back pain on admission and was receiving Dilaudid p.r.n. for pain. PAST MEDICAL HISTORY: Hyperlipidemia. PAST SURGICAL HISTORY: None. FAMILY HISTORY: Mother had hypertension. Father had a tumor in his stomach. Sister had a stroke. SOCIAL HISTORY: The patient denies previous history of tobacco or illicit drugs. He says he drinks alcohol about 3 drinks per week at a time, but not every week. He works as a combination welder. He lives with family. ALLERGIES: NO KNOWN ALLERGIES. ADMITTING DIAGNOSES: 1. Massive right central disk herniation at L4-L5. 2. Spinal stenosis at L4-L5 level as above. 3. Acute low back pain. Please. 4. Ambulatory dysfunction. 5. Transaminitis. 6. Asymptomatic bradycardia. DISCHARGE DIAGNOSES: 1. Massive central and right paracentral L4-L5 disk herniation with bilateral L5 radiculopathy, now status post right L4-L5 laminectomy, medial fasciotomy, and microsurgical diskectomy on 12/17/2019, by Dr. Hernadez. 2. Acute low back pain. 3. Ambulatory dysfunction. 4. Transaminitis. 5. Asymptomatic bradycardia. HOSPITAL COURSE: On 12/13, lumbar spine MRI, impression by radiologist was as follows: 1. Mildly degenerated disk at L4-L5, moderate at L5-S1. 2. A 1 cm central, right central and subarticular disk extrusion at L4-L5, compresses the right L5 nerve root and results in severe spinal canal stenosis. 3. Superimposed moderate foraminal stenosis L5-S1 (right greater than left). 4. Otherwise, no significant abnormalities. On 12/16, lumbar spine x-ray, impression by the radiologist is as follows; limited intraoperative lumbar spine radiograph with linear metallic markers overlying the lumbar spine at the level L4-L5. A subsequent lumbar spine x-ray on the same day was completed and the impression by the radiologist is as follows; just like the same x-ray, I am not sure why they had done twice. On admission; WBCs 9.68, today on 12/17 on the day of discharge, WBCs 13.27, hemoglobin 14.5, hematocrit 41, platelets 225. His chemistry was generally within normal limits. When he came in, his AST was elevated at 74, total protein high at 8.6. Today on the day of discharge, sodium 137, potassium 3.9, chloride 103, CO2 of 26, anion gap 11.9, BUN 21, creatinine 1.07, estimated GFR greater than 60, glucose 116, calcium 8.5, phosphorus 3.6, magnesium 2.2. Urinalysis was negative. Coronavirus PCR collected on 12/13 was negative. Final urine culture showed no growth after [address] Hernaedz's intraoperative note, the patient was awakened and extubated in the postanesthesia care unit in stable condition. No intraoperative complications were encountered. Estimated blood loss 10 mL. There is a discharge order put in by Dr. Hernadez for the patient to be discharged at 9:00 a.m. today, 12/17. Continue medications including prednisone 40 mg orally daily. I did not see or evaluate the patient today as I was uninformed that the patient will be discharging this morning. The patient should follow up with Neurosurgery as directed. The patient should follow up with Dr. Jarrod Reyes, his PCP in 1 to 2 weeks. Activity as per Neurosurgery recommendations. Most recently documented vital signs were at 9:52 a.m. in the morning, temperature 98.4, pulse 57, respirations 18, blood pressure 115/86, oxygen saturation 98% on room air. Dictated by Ramiro Mederos, ANASTACIO MD HEATH LoveP/MODL /[id number]
== END 2019-12-18 09:45 | disposition home or self-care (01) | DRG 519 ==
LOC: ER 12:35 → ERHOLD 15:47 → MED/SURG 19:43
PROVIDERS: ADMIT Internal Medicine; ATTEND Internal Medicine
PROC: 0SB20ZZ Excision of Lumbar Vertebral Disc, Open Approach (ICD-10-PCS; 2019-12-17)
PROC: 01NB0ZZ Release Lumbar Nerve, Open Approach (ICD-10-PCS; principal; 2019-12-17 11:30)
DX: M51.16 Intervertebral disc disorders with radiculopathy, lumbar region (principal); G83.4 Cauda equina syndrome; M51.06 Intervertebral disc disorders with myelopathy, lumbar region; M48.061 Spinal stenosis, lumbar region without neurogenic claudication; R00.1 Bradycardia, unspecified; Z82.49 Family history of ischemic heart disease and other diseases of the circulatory system; Z82.3 Family history of stroke; Z84.89 Family history of other specified conditions; Z72.89 Other problems related to lifestyle; E78.5 Hyperlipidemia, unspecified; R74.0 Nonspecific elevation of levels of transaminase and lactic acid dehydrogenase [LDH]; Z11.59 Encounter for screening for other viral diseases
CPT/HCPCS: 36415; 72020; 72148; 80048; 80053; 80061; 81001; 82948; 83036; 83735; 84100; 84443; 85025; 85610; 85730; 87086; 88304; 97139; 99284; J0690; J1100; J1170; J1885; J2001; J2250; J2270; J2405; J2710; J3010; J3370; J7030; J7512; U0002